=== PATIENT | male | born 1965 | race Caucasian/White ===

== ENCOUNTER 2023-11-07 08:00 | Outpatient (CLI) | payer OTHER ==
--- NOTE | 2023-11-07 14:51 | XRAY Report ---
PROCEDURE: Ribs w/PA Chest 3+V LT INDICATIONS: CONTUSION OF LEFT BACK WALL OF THORAX TECHNIQUE: 2 views of the ribs were acquired, along with a single view chest. COMPARISON: None. FINDINGS: Surgical changes and devices: None. Bones and chest wall: Linear lucency traverses the left posterior lateral 12th rib. No suspicious chaya ny lesions. Overlying soft tissues appear unremarkable. Lungs and pleura: No pleural effusions or pneumothorax. Lungs appear clear. Mediastinum: Mediastinal contours appear normal. Heart size is normal. IMPRESSION: Findings suggestive of a mildly displaced left posterolateral 12th rib fracture. Reviewed by: Alicia Griffiths MD on 11/07/2023 2:49 PM PST Approved by: Alicia Griffiths MD on 11/07/2023 2:49 PM PST Station ID: [id number]
== END 2023-11-07 23:59 | disposition home or self-care (01) ==
LOC: DI.S 08:00
PROVIDERS: ATTEND Physician Assistant Medical
DX: S20.222A Contusion of left back wall of thorax, initial encounter (principal)